=== PATIENT | female | born 1975 | race Caucasian/White ===

== ENCOUNTER 2018-08-01 13:57 | Emergency (ER) | payer OTHER ==
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
[2018-08-01 17:32] LABS: INR 0.95 (0.83-1.16); PROTIME(PATIENT) 12.9 SEC (12.0-15.0)
[2018-08-01 18:25] VITALS: BP 120/73
== END 2018-08-01 18:24 | disposition home or self-care (01) ==
DX: O03.9 Complete or unspecified spontaneous abortion without complication (principal); F41.9 Anxiety disorder, unspecified